=== PATIENT | female | born 1990 | race Caucasian/White ===

== ENCOUNTER → 2017-10-06 | Outpatient (CLI) | payer OTHER ==
[~2017-10-06] MED LIST: LORTAB 5/500 501 TAB PO; MOTRIN 600600 MG/TAB PO; NO HOME MEDICATIONS; PERCOCET 325 MG1 TA2 PO; PYRIDIUM200 M1 PO; TRI-SPRINTEC 281 TAB PO; ZOLOFT 50MG50 MG PO
== END ==
LOC: COL.RAD 13:30
DX: N85.8 Other specified noninflammatory disorders of uterus (principal); N83.291 Other ovarian cyst, right side; N83.292 Other ovarian cyst, left side
CPT/HCPCS: J0690; J1100; J1885; J2250; J2704; J2710; J3010

== ENCOUNTER 2017-10-07 16:15 | Observation (INO) | payer OTHER ==
[~2017-10-07] VITALS: Ht 170.2 cm; Wt 62.7 kg
[~2017-10-07 16:15] MED LIST changes: -MOTRIN 600600 MG/TAB PO; -PERCOCET 325 MG1 TA2 PO; -TRI-SPRINTEC 281 TAB PO; -ZOLOFT 50MG50 MG PO
[2017-10-07] MEDS ORDERED: ZOLOFT 50MG50 MG PO (16:32)
[2017-10-07] MEDS ORDERED: TRI-SPRINTEC 281 TAB PO (16:32)
[2017-10-07 16:51] LABS: BASO % 0.5 % (0.0-2.0); EOS # 0.1 (0.0-0.7); EOS % 1.4 % (0-4.0); GRAN # 6.1 (1.4-6.5); GRAN % 70.8 % (42.2-75.2); HEMATOCRIT 40.3 % (37.0-47.0); HEMOGLOBIN 14.1 g/dl (12.5-16.0); LYMPH # 1.9 (1.2-3.4); LYMPH % 22.2 % (20.0-51.0); MEAN CELL VOLUME 93 fl (80.0-100.0); MEAN CORPUSCULAR HEMOGLOBIN 33 pg (27.0-31.0); MEAN CORPUSCULAR HGB CONC 35 g/dl (33.0-37.0); MEAN PLATELET VOLUME 10.2 fl (7.4-10.4); MONO # 0.4 (0.1-0.6); MONO % 4.9 % (1.7-9.3); PLATELET COUNT 371 K/mm3 (130-400); RED BLOOD COUNT 4.32 M/mm3 (4.10-5.30); REDCELL DISTRIBUTION WIDTH-CV 12.4 % (11.5-14.5)
[2017-10-07 17:02] LABS: ALBUMIN 4.1 gm/dL (3.5-5.0); BILIRUBIN,TOTAL 0.4 mg/dL (0.0-1.0); CALCIUM 9.5 mg/dL (8.4-10.2); CREATININE, serum 0.78 mg/dL (0.52-1.25); POTASSIUM 4.1 mmol/L (3.4-5.0); TOTAL PROTEIN 7.7 gm/dL (6.4-8.2)
[2017-10-07] MEDS ORDERED: PERCOCET 325 MG1 TA2 PO (17:16)
[2017-10-07 18:18] LABS: COLLECTION METHOD CLEAN CATCH
[2017-10-07 18:31] LABS: MUCOUS Present /lpf; PH 7 (5-8); SQUAMOUS EPITHELIAL 0-2 /hpf; URINE APPEARANCE Clear; URINE BACTERIA None Seen /hpf; URINE BILIRUBIN Negative (NEGATIVE); URINE BLOOD Negative (NEGATIVE); URINE COLOR Straw; URINE GLUCOSE Negative (NEGATIVE); URINE KETONE Trace (NEGATIVE); URINE LEUKOCYTE ESTERASE Negative (NEGATIVE); URINE NITRATE Negative (NEGATIVE); URINE PROTEIN(semi-quant) Negative (NEGATIVE); URINE RBC 0-2 /hpf; URINE UROBILINOGEN Negative (NEGATIVE)
[2017-10-07] MEDS ORDERED: MOTRIN 600600 MG/TAB PO (22:51)
[2017-10-07 23:35] VITALS: BP 126/63; PULSE 90; TEMP 97.9
[2017-10-07 23:45] VITALS: BP 127/69; PULSE 84
[2017-10-08] VITALS: BP 120/63; PULSE 97
[2017-10-08 00:15] VITALS: BP 127/56; PULSE 90
[2017-10-08 00:30] VITALS: BP 119/65; PULSE 92
[2017-10-08 01:00] VITALS: BP 119/67; PULSE 96
[2017-10-08 01:30] VITALS: BP 125/66; PULSE 102
[2017-10-08 02:00] VITALS: BP 127/76; PULSE 93; TEMP 97.6
== END 2017-10-08 02:43 | disposition home or self-care (01) ==
LOC: COL.ER 16:15 → OB 21:03
PROVIDERS: Emergency Medicine
DX: N83.521 Torsion of right fallopian tube (principal); D27.0 Benign neoplasm of right ovary; N83.202 Unspecified ovarian cyst, left side; Z79.899 Other long term (current) drug therapy
CPT/HCPCS: J1170; J2405; J3010; J7030; J7120; Q9967